=== PATIENT | female | born 1970 | race Caucasian/White ===

== ENCOUNTER 2019-02-17 17:48 | Emergency (ER) | payer OTHER ==
--- OUTSIDE RECORDS SUMMARY | 2019-02-17 17:49 | XMS REPORT ---
:1970 [facility] Address [address] [place] [address] Dr. Steele [address] [place] [id number] Care Team Providers Name Role Phone Unavailable Unavailable Unavailable Problems This patient has no known problems. Allergies, Adverse Reactions, Alerts This patient has no known allergies or adverse reactions. Medications This patient has no known medications. Encounters Start End Encounter Admission Attending Care Care Encounter Date/Time Date/Time Type Type Clinicians Facility Department ID 2019-02-10 2019-02-10 Outpatient [id number] 09:02:00 09:02:00
[2019-02-17 18:50] LABS: Absolute Lymphocytes (CBC) 2.3 K/uL (0.7-4.9); Basophils % 3.2 % (0-1.3); Eosinophils % 2.5 % (0-4.4); Hematocrit 34.8 % (36.0-45.0); Lymphocytes % 18.7 % (15.3-44.8); Monocytes % 4.6 % (3.3-12.3); RBC Red Blood Cell Count 3.88 M/uL (3.86-4.86)
[2019-02-17 19:05] LABS: Albumin 3.4 g/dL (3.4-5.0); Bilirubin Direct 0.1 mg/dL (0-0.2); Bilirubin Total 0.2 mg/dL (0.2-1.0); Potassium 4.3 mmol/L (3.5-5.1); Protein, Total 7.6 g/dL (6.4-8.2)
[2019-02-17] MEDS ORDERED: MORPHINE 4 MG/ML SYR ONE ×2 (19:05→23:02)
[2019-02-17] MEDS ORDERED: ONDANSETRON 4 MG/2 ML VIAL ONE ×2 (19:05→23:39)
[2019-02-17 19:22] LABS: Blood Morphology Comment NOT SEEN (NOT SEEN); Platelet Estimate ADEQ
[2019-02-17 19:33] LABS: Urine Bacteria <20 /HPF (<20); Urine Culture Reflex Order NOT NEEDED; Urine RBC <5 /HPF (NONE SEEN)
[2019-02-17 20:09] LABS: Urine Blood 2+ (NEG); Urine Glucose NEGATIVE (NEG); Urine Protein NEGATIVE (NEG)
--- NOTE | 2019-02-17 20:38 | RAD REPORT ---
EXAM DESCRIPTION: CTAbdomen Pelvis W Contrast - 02/17/2019 8:29 pm CLINICAL HISTORY: Abdominal pain. LLQ pain;Abd pain;GI bleed COMPARISON: <Comparisons> TECHNIQUE: Biphasic CT imaging of the abdomen and pelvis was performed with 100 ml non-ionic IV cont rast. All CT scans are performed using dose optimization technique as appropriate and may include automated exposure control or mA/KV adjustment according to patient size. FINDINGS: The lung bases are clear. The liver, spleen, pancreas, adrenal glands and kidneys are within normal limits. A 6 cm length of sigmoid colon in the left lower quadrant shows significant pericolonic inflammation. Multiple diverticula are present in the region. Extraluminal air bubbles are present seen adjacent t o the sigmoid colon as well as in the fat in the right lower quadrant. Moderately phlegmonous inflamm atory change and fluid is present in the left lower quadrant without drainable abscess seen. The kendal endix is normal. No evidence of significant lymphadenopathy. No suspicious bony findings. IMPRESSION: Moderately severe left lower quadrant acute sigmoid diverticulitis is present. No draina ble abscess seen.
[2019-02-17] MEDS ORDERED: Levofloxacin500mg IV 500 MG/100 ML BAG IV ONE (21:42)
[2019-02-17] MEDS ORDERED: METRONIDAZOLE 500mg IVPB 500 MG/100 ML BAG IV ONE (21:42)
--- NOTE | 2019-02-17 23:24 | ER ---
Nurse's Notes [facility] Name: Heather Fontana Age: 48 yrs Sex: Female : 1970 Arrival Date: 02/17/2019 Time: 17:50 Bed 27 Private MD: Diagnosis: Diverticulitis of large intestine without perforation or abscess without bleeding Presentation: 02/17 17:53 Presenting complaint: Patient states: S/P lap hysterectomy at [facility] a week hj ago. This morning, when i went to [facility], i noticed blood other than my stool, and this afternoon it was all blood; reports abd pain on the L lower abd; reports nausea; denies fever and chills; pt states" called my doctor and they told me to go to the ER and have a CT scan". Transition of care: patient was not received from another setting of care. Onset of symptoms was February 17, 2019. Risk Assessment: Do you want to hurt yourself or someone else? Patient reports no desire to harm self or others. Initial Sepsis Screen: Does the patient meet any 2 criteria? No. Patient's initial sepsis screen is negative. Does the patient have a suspected source of infection? No. Patient's initial sepsis screen is negative. Care prior to arrival: None. 17:53 Method Of Arrival: Ambulatory 17:53 Acuity: KAREL 3 hj HEAD OF PRODUCT: 18:41 lmp unknown mg2 Historical: - Allergies: 17:56 No Known Allergies; hj - PMHx: 17:56 None; - PSHx: 17:56 neck surgery; lap hysterectomy; - Immunization history:: Flu vaccine status is unknown. - Social history:: Smoking status: unknown. - Ebola Screening: : No symptoms or risks identified at this time. Screenin:41 Abuse screen: Denies threats or abuse. Denies injuries from another. Nutritional mg2 screening: No deficits noted. Tuberculosis screening: No symptoms or risk factors identified. Fall Risk None identified. Assessment: 18:39 General: Appears in no apparent distress. comfortable, Behavior is calm, cooperative. mg2 Pain: Complains of pain in abdomen Pain does not radiate. Pain currently is 3 out of 10 on a pain scale. Quality of pain is described as aching, Pain began gradually, Is intermittent. Neuro: Level of Consciousness is awake, alert, obeys commands, Oriented to person, place, time, situation. Neuro: Reports headache. Cardiovascular: Capillary refill < 3 seconds Patient's skin is warm and dry. Respiratory: Airway is patent Respiratory effort is even, unlabored, Respiratory pattern is regular, symmetrical. GI: Abdomen is non-distended, Reports lower abdominal pain, bloody stool, nausea, since today. : No signs and/or symptoms were reported regarding the genitourinary system. EENT: No deficits noted. Derm: Skin is intact, is healthy with good turgor, Skin is pink, warm \\T\\ dry. normal. Musculoskeletal: Circulation, motion, and sensation intact. Capillary refill < 3 seconds. 23:36 Reassessment: Patient appears in no apparent distress at this time. Patient is alert, ca1 oriented x 3, equal unlabored respirations, skin warm/dry/pink. Patient states feeling better. Vital Signs: 17:56 BP 127 / 57; Pulse 83; Resp 18; Temp 98.9; Pulse Ox 96% on R/A; Weight 79.83 kg; Height 5 ft. 6 in. (167.64 cm); Pain 2/10; 21:56 BP 122 / 64; Pulse 67; Resp 18; Pulse Ox 100% on R/A; mg2 23:23 BP 127 / 62; Pulse 62; Resp 18; Pulse Ox 100% on R/A; mg2 17:56 Body Mass Index 28.41 (79.83 kg, 167.64 cm) ED Course: 17:50 Patient arrived in ED. as 17:55 Triage completed. hj 17:56 Arm band placed on right wrist. hj 18:07 David Schaffer RN is Primary Nurse. mg2 18:15 Florencio Odonnell NP is PHCP. pm1 18:15 Saqib Rhodes MD is Attending Physician. pm1 18:34 Inserted saline lock: 22 gauge in right antecubital area, using aseptic technique. jp3 Blood collected. 18:34 Initial lab(s) drawn, by me, sent to lab. T\\T\\S collected, blood band applied to patient. jp3 Patient maintains SpO2 saturation greater than 95% on room air. 18:40 Placed in gown. Bed in low position. Call light in reach. Side rails up X 1. Side rails jp3 up X2. Warm blanket given. Verbal reassurance given. Pulse ox on. NIBP on. 18:40 TS Sent. jp3 18:40 Basic Metabolic Panel Sent. jp3 18:40 CBC with Diff Sent. jp3 18:41 Creatinine for Radiology Sent. jp3 18:41 Hepatic Function Sent. jp3 18:41 Lipase Sent. jp3 19:43 No provider procedures requiring assistance completed. mg2 20:29 CT Abd/Pelvis - PO and IV Contrast In Process Unspecified. EDMS 23:36 IV discontinued, intact, bleeding controlled, No redness/swelling at site. Pressure ca1 dressing applied. Administered Medications: 18:54 Drug: morphine 4 mg Route: IVP; Site: right antecubital; mg2 19:57 Follow up: Response: No adverse reaction; Marked relief of symptoms mg2 18:54 Drug: Zofran 4 mg Route: IVP; Site: right antecubital; mg2 19:57 Follow up: Response: No adverse reaction; Marked relief of symptoms mg2 21:30 Drug: Flagyl 500 mg Volume: 100 ml; Route: IVPB; Rate: 200 ml/hr; Infused Over: 30 mg2 mins; Site: right antecubital; 22:01 Drug: LevaQUIN 500 mg Volume: 100 ml; Route: IVPB; Infused Over: 60 mins; Site: right mg2 antecubital; 22:54 Drug: morphine 4 mg Route: IVP; Site: right antecubital; mg2 Outcome: 23:23 Discharge ordered by MD. pm1 23:36 Discharged to home ambulatory, with significant other. ca1 23:36 Condition: stable 23:36 Discharge instructions given to patient, Instructed on discharge instructions, follow up and referral plans. medication usage, Demonstrated understanding of instructions, follow-up care, medications, Prescriptions given X 3. 23:37 Patient left the ED. ca1 Signatures: Dispatcher [employer] EDMS Reina Garcia Henry, RN RN hj Florencio Odonnell NP WOOD FLOOR LAYER pm1 David Schaffer RN RN mg2 Dalton Qureshi jp3 Claudette Starks RN RN ca1 Corrections: (The following items were deleted from the chart) 17:57 17:53 Presenting complaint: Patient states: S/P lap hysterectomy at [facility] a hj week ago. This morning, when i went to [facility], i noticed blood other than my stool, and this afternoon it was all blood; reports abd pain on the L lower abd; reports nausea; denies fever and chills; 17:57 17:56 Temp 98.9F; 79.83 kg; Height 5 ft. 6 in.; BMI: 28.4; Pain 09/14; [facility]
--- NOTE | 2019-02-17 23:24 | EDPHYS ---
Physician Documentation [facility] Name: Heather Fontana Age: 48 yrs Sex: Female : 1970 Arrival Date: 02/17/2019 Time: 17:50 Bed 27 Private MD: ED Physician Saqib Rhodes HPI: 02/17 19:38 This 48 yrs old Female presents to ER via Ambulatory with complaints of pm1 Bloody Stools, Abdominal pain. 19:38 The patient presents with abdominal pain in the left lower quadrant. Onset: The pm1 symptoms/episode began/occurred today. The symptoms do not radiate. Associated signs and symptoms: Pertinent positives: blood in stools, Pertinent negatives: nausea and vomiting, dysuria, fever. The symptoms are described as achy. Modifying factors: The symptoms are alleviated by nothing, the symptoms are aggravated by nothing. Severity of pain: in the emergency department the pain is actually worse. The patient has experienced similar episodes in the past, and the symptoms today are exactly the same, to previous diverticulitis. The patient has been recently seen by a physician: with different complaint(s), Hysterectomy and left oophorectomy 1 weeks ago. 19:38 Patient with bright red blood in stools and toilet. pm1 PLANT CHANGER: 18:41 lmp unknown mg2 Historical: - Allergies: 17:56 No Known Allergies; hj - PMHx: 17:56 None; hj - PSHx: 17:56 neck surgery; lap hysterectomy; hj - Immunization history:: Flu vaccine status is unknown. - Social history:: Smoking status: unknown. - Ebola Screening: : No symptoms or risks identified at this time. ROS: 19:38 Constitutional: Negative for fever, chills, and weight loss, Eyes: Negative for injury, pm1 pain, redness, and discharge, ENT: Negative for injury, pain, and discharge, Neck: Negative for injury, pain, and swelling, Cardiovascular: Negative for chest pain, palpitations, and edema, Respiratory: Negative for shortness of breath, cough, wheezing, and pleuritic chest pain. 19:38 Back: Negative for injury and pain, : Negative for injury, bleeding, discharge, and swelling, MS/Extremity: Negative for injury and deformity, Skin: Negative for injury, rash, and discoloration, Neuro: Negative for headache, weakness, numbness, tingling, and seizure. 19:38 Abdomen/GI: Positive for abdominal pain, of the left lower quadrant, Negative for nausea, vomiting, and diarrhea. Exam: 19:38 Constitutional: This is a well developed, well nourished patient who is awake, alert, pm1 and in no acute distress. Head/Face: Normocephalic, atraumatic. Eyes: Pupils equal round and reactive to light, extra-ocular motions intact. Lids and lashes normal. Conjunctiva and sclera are non-icteric and not injected. Cornea within normal limits. Periorbital areas with no swelling, redness, or edema. ENT: Nares patent. No nasal discharge, no septal abnormalities noted. Tympanic membranes are normal and external auditory canals are clear. Oropharynx with no redness, swelling, or masses, exudates, or evidence of obstruction, uvula midline. Mucous membranes moist. Neck: Trachea midline, no thyromegaly or masses palpated, and no cervical lymphadenopathy. Supple, full range of motion without nuchal rigidity, or vertebral point tenderness. No Meningismus. Chest/axilla: Normal chest wall appearance and motion. Nontender with no deformity. No lesions are appreciated. Cardiovascular: Regular rate and rhythm with a normal S1 and S2. No gallops, murmurs, or rubs. Normal PMI, no JVD. No pulse deficits. Respiratory: Lungs have equal breath sounds bilaterally, clear to auscultation and percussion. No rales, rhonchi or wheezes noted. No increased work of breathing, no retractions or nasal flaring. Back: No spinal tenderness. No costovertebral tenderness. Full range of motion. 19:38 Skin: Warm, dry with normal turgor. Normal color with no rashes, no lesions, and no evidence of cellulitis. MS/ Extremity: Pulses equal, no cyanosis. Neurovascular intact. Full, normal range of motion. 19:38 Abdomen/GI: Inspection: abdomen appears normal, Bowel sounds: normal, Palpation: soft, mild abdominal tenderness, in the left lower quadrant, mass, is not appreciated, rebound tenderness, is not appreciated. 19:38 Neuro: Orientation: is normal, Motor: is normal, moves all fours. Vital Signs: 17:56 BP 127 / 57; Pulse 83; Resp 18; Temp 98.9; Pulse Ox 96% on R/A; Weight 79.83 kg; Height hj 5 ft. 6 in. (167.64 cm); Pain 2/10; 21:56 BP 122 / 64; Pulse 67; Resp 18; Pulse Ox 100% on R/A; mg2 23:23 BP 127 / 62; Pulse 62; Resp 18; Pulse Ox 100% on R/A; mg2 17:56 Body Mass Index 28.41 (79.83 kg, 167.64 cm) MDM: 18:22 Patient medically screened. pm1 21:35 ED course: Discussed current findings with Dr. Brock, the surgeon who performed pm1 partial hysterectomy. Reports that patient with injury to small bowel that was repaired. 23:05 ED course: discussed with patient the need for hospitalization according to discussion pm1 with my hospitalist Dr. Stearns. He believes that hospitalization [facility] be best at [facility] but if she does not want to go there he would be happy to admit her here. The patient does not want to stay in the hospital and wants to go home. Educated the patient on return precautions. 23:09 Data reviewed: vital signs. Data interpreted: Pulse oximetry: on room air is 100 %. pm1 Interpretation: normal. Counseling: I had a detailed discussion with the patient and/or guardian regarding: the historical points, exam findings, and any diagnostic results supporting the discharge/admit diagnosis, lab results, radiology results, the need for outpatient follow up, to return to the emergency department if symptoms worsen or persist or if there are any questions or concerns that arise at home. 02/17 18:08 Order name: Basic Metabolic Panel; Complete Time: 19:29 mg2 02/17 18:08 Order name: CBC with Diff; Complete Time: 19:29 mg2 02/17 18:08 Order name: Creatinine for Radiology; Complete Time: 19:29 mg2 02/17 18:08 Order name: Hepatic Function; Complete Time: 19:29 mg2 02/17 18:08 Order name: Lipase; Complete Time: 19:29 mg2 02/17 18:08 Order name: TS; Complete Time: 19:29 mg2 02/17 18:37 Order name: CT Abd/Pelvis - PO and IV Contrast; Complete Time: 21:05 pm1 02/17 18:48 Order name: Urine Microscopic Only; Complete Time: 19:49 iw 02/17 18:50 Order name: Urine Dipstick--Ancillary (enter results); Complete Time: 21:05 bd 02/17 18:50 Order name: Urine --Ancillary (enter results); Complete Time: 21:05 02/17 18:58 Order name: Manual Differential; Complete Time: 19:29 EDTX 02/17 19:28 Order name: ABO/RH no charge; Complete Time: 19:29 EDTX 02/17 18:08 Order name: IV Saline Lock; Complete Time: 18:41 mg2 02/17 18:08 Order name: Labs collected and sent; Complete Time: 18:41 mg2 02/17 18:37 Order name: Urine Dipstick-Ancillary (obtain specimen); Complete Time: 18:47 pm1 Administered Medications: 18:54 Drug: morphine 4 mg Route: IVP; Site: right antecubital; mg2 19:57 Follow up: Response: No adverse reaction; Marked relief of symptoms mg2 18:54 Drug: Zofran 4 mg Route: IVP; Site: right antecubital; mg2 19:57 Follow up: Response: No adverse reaction; Marked relief of symptoms mg2 21:30 Drug: Flagyl 500 mg Volume: 100 ml; Route: IVPB; Rate: 200 ml/hr; Infused Over: 30 mg2 mins; Site: right antecubital; 22:01 Drug: LevaQUIN 500 mg Volume: 100 ml; Route: IVPB; Infused Over: 60 mins; Site: right mg2 antecubital; 22:54 Drug: morphine 4 mg Route: IVP; Site: right antecubital; mg2 Disposition: 02/18 05:51 Co-signature as Attending Physician, Saqib Rhodes MD I agree with the assessment and brisa plan of care. Disposition: 02/17/19 23:23 Discharged to Home. Impression: Diverticulitis of large intestine without perforation or abscess without bleeding. - Condition is Stable. - Discharge Instructions: Diverticulitis. - Prescriptions for Flagyl 500 mg Oral Tablet - take 1 tablet by ORAL route every 8 hours for 10 days; 30 tablet. Tylenol- Codeine #3 300-30 mg Oral Tablet - take 2 tablet by ORAL route every 6 hours As needed; 30 tablet. Cipro 500 mg Oral Tablet - take 1 tablet by ORAL route every 12 hours for 10 days; 20 tablet. - Medication Reconciliation Form, Thank You Letter, Antibiotic Education, Prescription Opioid Use form. - Follow up: Emergency Department; When: As needed; Reason: Worsening of condition. Follow up: Private Physician; When: 2 - 3 days; Reason: Recheck today's complaints, Continuance of care, Re-evaluation by your physician. - Problem is new. - Symptoms have improved. Signatures: Dispatcher [employer] EDMS Saqib Rhodes MD MD cha Joaquin, Henry RN RN hj Florencio Odonnell NP CHAPTER RELATIONS ADMINISTRATOR pm1 David Schaffer RN RN mg2 Claudette Starks RN RN ca1 Corrections: (The following items were deleted from the chart) 02/17 23:37 23:23 02/17/2019 23:23 Discharged to Home. Impression: Diverticulitis of large ca1 intestine without perforation or abscess without bleeding. Condition is Stable. Forms are Medication Reconciliation Form, Thank You Letter, Antibiotic Education, Prescription Opioid Use. Follow up: Emergency Department; When: As needed; Reason: Worsening of condition. Follow up: Private Physician; When: 2 - 3 days; Reason: Recheck today's complaints, Continuance of care, Re-evaluation by your physician. Problem is new. Symptoms have improved. pm1
[2019-02-18 00:49] VITALS: TEMP 98.9
[2019-02-18 00:50] VITALS: O2SAT 100
[2019-02-18 00:51] VITALS: BP 127/62
== END 2019-02-17 23:37 | disposition home or self-care (01) ==
LOC: ER 17:48
DX: K57.32 Diverticulitis of large intestine without perforation or abscess without bleeding (principal)
CPT/HCPCS: 36415; 74177; 80048; 80076; 81003; 81015; 81025; 83690; 85025; 86850; 86900; 86901; 96374; 96375; 99284; J2405; Q9967

== ENCOUNTER 2024-06-29 15:46 | Inpatient (IN) | payer OTHER ==
--- OUTSIDE RECORDS SUMMARY | 2024-06-29 15:48 | XMS REPORT | Clinical Summary ---
Author Name Unknown Organization [facility] Address [address] [place] [address] Care Team Providers Care Car Icer Name Role Phone Yelena Sadler MD Unavailable [phone] Jack Brock MD Primary Care Provider [phone] Allergies No known active allergies Medications cholecalciferol, vitamin D3, (VITAMIN D3) 50,000 units tab tablet Take 50,000 Units by mouth every 30 (thirty) days. Active melatonin 3 mg tablet Take 10 mg by mouth at bedtime. Active Active Problems Problem Noted Date Diagnosed Date Abdominal or pelvic swelling , mass, or lump, left lower quadrant 01/27/2019 Personal history of tobacco use 01/27/2019 Overview (05/05/2019): 05/05 Regulatory Import Vitamin D deficiency 01/27/2019 Excessive and frequent menstruation with irregul ar cycle 01/26/2019 Surgical History Surgery Date Site/Laterality Comments ENDOMETRIAL ABLATION 08/05/2004 - 08/04/2005 TUBAL LIGATION 08/05/2004 - 08/04/2005 NECK SURGERY 08/05/2008 - 08/04/2009 Medical History Medical History Date Comments Diverticulitis Endometriosis Family History Medical History Relation Name Comments Lung cancer Maternal Grandfather Lung cancer Maternal Uncle Relation Name Status Comments Maternal Grandfather Maternal Uncle Social History Tobacco Use Types Packs/Day Years Used Date Smoking Tobacco: Former Cigarettes 1 30.6 1 988 - 03/17/2018 Smokeless Tobacco: Never Alcohol Use Standard Drinks/Week Comments Yes 0 (1 standard drink = 0.6 oz pur e alcohol) 3-4 weekly Comments Unknown Sex and Gender Information Value Date Recorded Sex Assigned at Female 01/19/2019 1:24 PM CDT Legal Sex Female 8:42 AM CDT Gender Identity Female 01/19/2019 1:24 PM CDT Sexual Orientation Straight 01/19/2019 1: 24 PM CDT Obstetrics History Para Term AB IAB SAB Ectopic Multiple Livin g Live Births 4 2 Date Outcome GA Total Labor Labor/2nd/3rd Weight Sex Type Anes PTL Eve A1 A5 Name Clin Para Para Comments 2 normal vaginal deliveries Plan of Treatment Health Maintenance Due Date Last Done Comments COVID-19 Vaccine (2023-2 5 season) 2024 Influenza Vaccine (#1) 2024 Pneumococcal Vaccine: Pediat rics (0 to 5 Years) and At-Risk Patients (6 to 64 Years) Aged Out No longer eligi ble based on patient's age to complete this topic [place] [employer] [place] [facility] [place]: [facility] [id number] [place] [id number] Care Teams Car Icer Relationship Specialty Start Date End Date Yelena Sadler MD [address] [place] [address] [email or web address] PCP - External Referring Obstetrics/Gynecology 01/19/19 Jack Brock MD [address] [place] [id number] [email or web address] PCP - General Gynecological Oncology 01/19/19
[2024-06-29] MEDS ORDERED: FAMOTIDINE 20 MG/2 ML VIAL IV ONE (17:10)
[2024-06-29] MEDS ORDERED: MORPHINE 4 MG/ML SYR ONE ×2 (17:10→19:31)
[2024-06-29] MEDS ORDERED: ONDANSETRON 4 MG/2 ML VIAL ONE (17:10)
[2024-06-29] MEDS ORDERED: NA CHLORIDE 0.9% 1,000 ML ONE (17:10)
[2024-06-29] MEDS ORDERED: PIPERACIL/TAZO 3.375 GM VIAL IV ONE (17:11)
[2024-06-29] MEDS ORDERED: NA CHLORIDE 0.9% 100 ML ONE (17:11)
[2024-06-29 17:44] LABS: Absolute Basophils 0.1 K/uL (0-0.5); Absolute Eosinophils 0.1 K/uL (0-0.5); Absolute Neutrophil 10.7 K/uL (1.8-8.0); Basophils % 0.6 % (0-1.3); Eosinophils % 0.9 % (0-4.4); Hematocrit 37.2 % (36.0-45.0); Hemoglobin 12.9 g/dL (12.0-15.0); Lymphocytes % 20.1 % (15.3-44.8); MCH 29.9 pg (27.0-35.0); MCHC 34.6 g/dL (32.0-36.0); MCV 86.4 fL (80-100); MPV 6.5 fL (7.6-11.3); Monocytes % 6.8 % (3.3-12.3); Neutrophils % 71.6 % (41.7-73.7); Nucleated Red Blood Cells % 0.1 % (0-0); Platelets 410 thou/uL (152-406); RBC Red Blood Cell Count 4.31 M/uL (3.86-4.86); Red Cell Distribution Width 12.6 % (12.1-15.2)
[2024-06-29 17:46] LABS: Specific Gravity 1.009 (1.005-1.030); Sqamous Epithelial <5 /HPF (None Seen); Urine Bacteria None Seen /HPF (<20); Urine Bilirubin NEGATIVE (Negative); Urine Blood 2+ (Negative); Urine Clarity Clear (Clear); Urine Color Light-Yellow (Yellow); Urine Culture Reflex Order NOT NEEDED; Urine Glucose NEGATIVE (Negative); Urine Ketones 1+ (Negative); Urine Microscopic Reflex YN ORDER UMIC; Urine Mucus Slight /HPF (None Seen); Urine Nitrite NEGATIVE (Negative); Urine Protein NEGATIVE (Negative); Urine RBC <5 /HPF (None Seen); Urine Urobilinogen Normal (Normal); Urine WBC <5 /HPF (<5); Urine Yeast (Budding) Trace /HPF (None Seen); Urine pH 5.5 (5.0-7.0)
[2024-06-29 18:00] LABS: Albumin 3.5 g/dL (3.4-5.0); Albumin/Globulin Ratio 0.8 (1.1-1.8); Anion Gap 9.5 mEq/L (5.0-15.0); Bilirubin Total 0.5 mg/dL (0.2-1.0); Globulin 4.4 g/dL (2.3-3.5); Potassium 3.5 mEq/L (3.5-5.1); Protein, Total 7.9 g/dL (6.4-8.2)
--- NOTE | 2024-06-29 18:01 | EDPHYS ---
Physician Documentation [facility] Name: Heather Fontana Age: 53 yrs Sex: Female : 1970 Arrival Date: 06/29/2024 Time: 15:46 Bed 7 Private MD: ED Physician Saqib Rhodes HPI: 06/29 16:28 This 53 yrs old Female presents to ER via Ambulatory with complaints of Abdominal Pain, brisa Nausea/Vomiting. 16:28 The patient presents to the emergency department with nausea, that is mild. 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 - Infectious Disease History:: Denies. - Social history:: Smoking status: Patient reports the use of cigarette tobacco products, smokes one pack cigarettes per day. Patient/guardian denies using alcohol. - Family history:: not pertinent. ROS: 16:31 Constitutional: Negative for fever, chills, and weight loss, Eyes: Negative for injury, brisa pain, redness, and discharge, ENT: Negative for injury, pain, and discharge, Neck: Negative for injury, pain, and swelling, Cardiovascular: Negative for chest pain, palpitations, and edema, Respiratory: Negative for shortness of breath, cough, wheezing, and pleuritic chest pain, Back: Negative for injury and pain, : Negative for injury, bleeding, discharge, and swelling, MS/Extremity: Negative for injury and deformity, Skin: Negative for injury, rash, and discoloration, Neuro: Negative for headache, weakness, numbness, tingling, and seizure, Psych: Negative for depression, anxiety, suicide ideation, homicidal ideation, and hallucinations, Allergy/Immunology: Negative for hives, rash, and allergies, Endocrine: Negative for neck swelling, polydipsia, polyuria, polyphagia, and marked weight changes, Hematologic/Lymphatic: Negative for swollen nodes, abnormal bleeding, and unusual bruising, 16:31 Abdomen/GI: Positive for abdominal pain, of the left lower quadrant, Exam: 16:31 Constitutional: This is a well developed, well nourished patient who is awake, alert, brisa and in no acute distress. Head/Face: Normocephalic, atraumatic. Eyes: Pupils equal round and reactive to light, extra-ocular motions intact. Lids and lashes normal. Conjunctiva and sclera are non-icteric and not injected. Cornea within normal limits. Periorbital areas with no swelling, redness, or edema. ENT: Nares patent. No nasal discharge, no septal abnormalities noted. Tympanic membranes are normal and external auditory canals are clear. Oropharynx with no redness, swelling, or masses, exudates, or evidence of obstruction, uvula midline. Mucous membranes moist. Neck: Trachea midline, no thyromegaly or masses palpated, and no cervical lymphadenopathy. Supple, full range of motion without nuchal rigidity, or vertebral point tenderness. No Meningismus. Chest/axilla: Normal chest wall appearance and motion. Nontender with no deformity. No lesions are appreciated. Cardiovascular: Regular rate and rhythm with a normal S1 and S2. No gallops, murmurs, or rubs. Normal PMI, no JVD. No pulse deficits. Respiratory: Lungs have equal breath sounds bilaterally, clear to auscultation and percussion. No rales, rhonchi or wheezes noted. No increased work of breathing, no retractions or nasal flaring. Back: No spinal tenderness. No costovertebral tenderness. Full range of motion. Skin: Warm, dry with normal turgor. Normal color with no rashes, no lesions, and no evidence of cellulitis. MS/ Extremity: Pulses equal, no cyanosis. Neurovascular intact. Full, normal range of motion. Neuro: Awake and alert, GCS 15, oriented to person, place, time, and situation. Cranial nerves II-XII grossly intact. Motor strength 5/5 in all extremities. Sensory grossly intact. Cerebellar exam normal. Normal gait. Psych: Awake, alert, with orientation to person, place and time. Behavior, mood, and affect are within normal limits. 16:31 Abdomen/GI: Inspection: abdomen appears normal, Bowel sounds: normal, Palpation: moderate abdominal tenderness, in the left lower quadrant, Liver: no appreciated palpable abnormalities, Hernia: not appreciated, Vital Signs: 16:14 Pulse 95; Resp 19; Temp 98.5(O); Pulse Ox 98% on R/A; Weight 77.11 kg; Height 5 ft. 6 tm6 in. ; Pain 7/10; 16:14 BP 118 / 73; tm6 19:04 BP 116 / 59; Pulse 69; Resp 18; Pulse Ox 98% on R/A; ph 20:13 BP 132 / 81; Pulse 85; Resp 18; Temp 99.4(O); Pulse Ox 97% on R/A; Height 4 ft. 0 in. ; mt4 16:14 Body Mass Index 27.44 (77.11 kg, 121.92 cm) tm6 16:14 Pain Scale: Adult tm6 MDM: 15:56 Medical Screening Exam initiated brisa 16:32 Differential diagnosis: Nonspecific abd pain, gastritis, pancreatitis, diverticulitis, brisa viral gastroenteritis, gastroenteritis, bowel obstruction, diverticulitis, GI Bleed, sympomatic leaking abdominal aortic aneurysm, Mesenteric ischemia or infarction, non-specific abd pain, pancreatitis, Peritonitis. Data reviewed: vital signs, nurses notes, lab test result(s), radiologic studies, CT scan. Consideration of Admission/Observation Escalation of care including admission/observation considered. I considered the following discharge prescriptions or medication management in the emergency department Medications were administered in the Emergency Department. See MAR. Independent interpretation of the following test(s) in the Emergency Department CT Scan: My interpretation is CT ABD / PELVIS. Test considered but Not performed: Ultrasound NO ABD US. Historians other than the Patient: Spouse/Significant Other: WELL INFORMED. Care significantly affected by the following chronic conditions: Obesity, SMOKER, DIVERTICULITIS. Counseling: I had a detailed discussion with the patient and/or guardian regarding lab results, radiology results, the need for further work-up and treatment in the hospital. 06/29 16:12 Order name: CBC with Diff; Complete Time: 17:58 [facility] 06/29 18:47 Interpretation: Normal except: WBC 15.00; PLT 410; MPV 6.5; NEUT A 10.7. cp 06/29 16:12 Order name: CMP; Complete Time: 18:17 [facility] 06/29 16:12 Order name: Lipase; Complete Time: 18:17 [facility] 06/29 16:12 Order name: Urinalysis w/ reflexes; Complete Time: 17:58 [facility] 06/29 19:36 Order name: CBC with Automated Diff EDMI 06/29 19:36 Order name: Comprehensive Metabolic Panel EDMS 06/29 19:36 Order name: Lactate w/ 2H reflex if indic. [facility] 06/29 19:36 Order name: Liver (Hepatic) Function [facility] 06/29 19:36 Order name: Magnesium [facility] 06/29 19:36 Order name: Phosphorus [facility] 06/29 19:36 Order name: Thyroid Stimulating Hormone [facility] 06/29 19:36 Order name: Urinalysis w/ reflexes [facility] 06/29 19:36 Order name: Lipid Profile [facility] 06/29 19:36 Order name: Lipid Profile [facility] 06/29 16:12 Order name: CT Abd/Pelvis - IV Contrast Only; Complete Time: 18:46 [facility] 06/29 19:36 Order name: CONS Physician Consult [facility] 06/29 16:12 Order name: IV Saline Lock; Complete Time: 17:47 [facility] 06/29 16:12 Order name: Labs collected and sent; Complete Time: 17:47 [facility] Administered Medications: 17:47 Drug: Famotidine IVP 20 mg IVP once; dilute with 10 mL 0.9% NaCl; give over 2 minutes ph Route: IVP; Site: right antecubital; 18:21 Follow up: Response: No adverse reaction ph 17:47 Drug: Ondansetron IVP 4 mg IVP once; over 2 minutes Route: IVP; Site: right antecubital;ph 18:21 Follow up: Response: No adverse reaction ph 17:47 Drug: morphine IVP or IV 4 mg IVP once over 4 mins Route: IVP; Infused Over: 4 mins; ph Site: right antecubital; 18:21 Follow up: Response: No adverse reaction ph 17:47 Drug: NS 0.9% IV 1000 ml IV at 1 bolus Per protocol; to be given as a bolus over 60 ph minutes Route: IV; Rate: 1 bolus; Site: right antecubital; 18:21 Follow up: Response: No adverse reaction; IV Status: Completed infusion; IV Intake: ph 1000ml 19:36 Drug: Piperacillin-Tazobactam IVPB 3.375 grams IVPB once over 60 mins; (mix in NS 100 cp4 mL) Route: IVPB; Infused Over: 60 mins; Site: right antecubital; 20:19 Follow up: Response: No adverse reaction; IV Status: Completed infusion; IV Intake: mt4 100ml 19:36 Drug: morphine IVP or IV 4 mg IVP once over 4 mins Route: IVP; Infused Over: 4 mins; cp4 Site: right antecubital; 20:19 Follow up: Response: No adverse reaction mt4 Disposition Summary: 06/29/24 18:00 Hospitalization Ordered Notes: Hospitalization Status: Inpatient Admission brisa Provider: Colette Stearns cha Location: Telemetry/MedSurg (Inpatient) brisa Condition: Fair brisa Problem: new brisa Symptoms: have improved brisa Bed/Room Type: Standard [facility] Room Assignment: 225(06/29/24 19:38) ty Diagnosis - Abdominal tenderness - DIVERTICULITIS brisa - Elevated white blood cell count brisa Forms: - Medication Reconciliation Form brisa - SBAR form brisa - Leadership Thank You Letter brisa Signatures: Dispatcher [employer] EDMS Saqib Rhodes MD MD cha Hall, Patricia, RN RN Saqib Ochoa PA PA cp Potter, Christina cp4 Charles Martins RN RN 6 Zac Vargas ty Patrick Wynn RN mt4 Corrections: (The following items were deleted from the chart) 16:13 16:12 Abdomen Pelvis W Con+CT.RAD.BRZ ordered. EDMI EDMS 19:38 18:00 brisa ty
--- NOTE | 2024-06-29 18:01 | ER ---
Nurse's Notes [facility] Name: Heather Fontana Age: 53 yrs Sex: Female : 1970 Arrival Date: 06/29/2024 Time: 15:46 Bed 7 Private MD: Diagnosis: Abdominal tenderness-DIVERTICULITIS;Elevated white blood cell count Presentation: 06/29 16:16 Chief complaint: Patient states: last Saturday LLQ to suprapubic area started to hurt. tm6 Feels like dull, nagging, constant pain. Has nausea and vomiting, mostly in the morning. Coronavirus screen: Client denies travel out of the [place] in the last 14 days. Ebola Screen: Patient negative for fever greater than or equal to 101.5 degrees Fahrenheit, and additional compatible Ebola Virus Disease symptoms Patient denies exposure to infectious person. Patient denies travel to an Ebola-affected area in the 21 days before illness onset. No symptoms or risks identified at this time. Initial Sepsis Screen: Does the patient meet any 2 criteria? No. Patient's initial sepsis screen is negative. Does the patient have a suspected source of infection? No. Patient's initial sepsis screen is negative. Risk Assessment: Do you want to hurt yourself or someone else? Patient reports no desire to harm self or others. Onset of symptoms was June 22, 2024. 16:16 Method Of Arrival: Ambulatory tm6 16:16 Acuity: KAREL 3 tm6 Triage Assessment: 16:16 General: Appears in no apparent distress. uncomfortable, Behavior is calm, cooperative. tm6 Pain: Complains of pain in suprapubic area and left lower quadrant Pain currently is 7 out of 10 on a pain scale. Quality of pain is described as dull, Pain began one week ago Is continuous, Also complains of nausea. EENT: No signs and/or symptoms were reported regarding the EENT system. Neuro: Level of Consciousness is awake, alert, obeys commands, Oriented to person, place, time, situation. Cardiovascular: Patient's skin is warm and dry. Respiratory: Airway is patent Respiratory effort is even, unlabored, Respiratory pattern is regular, symmetrical. GI: Abdomen is flat, non-distended, Reports lower abdominal pain, nausea, vomiting, since one week ago. : No signs and/or symptoms were reported regarding the genitourinary system. Derm: No signs and/or symptoms reported regarding the dermatologic system. Musculoskeletal: No signs and/or symptoms reported regarding the musculoskeletal system. 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 - Infectious Disease History:: Denies. - Social history:: Smoking status: Patient reports the use of cigarette tobacco products, smokes one pack cigarettes per day. Patient/guardian denies using alcohol. - Family history:: not pertinent. Screenin:[facility] ED Fall Risk Assessment (Adult) History of falling in the last 3 months, ph including since admission No falls in past 3 months (0 pts) Confusion or Disorientation No (0 pts) Intoxicated or Sedated No (0 pts) Impaired Gait No (0 pts) Mobility Assist Device Used No (0 pt) Altered Elimination No (0 pt) Score/Fall Risk Level 0 - 2 = Low Risk Oriented to surroundings, Maintained a safe environment, Hourly rounding (assess needs \T\ fall precautionary measures) done. Abuse screen: Denies threats or abuse. Denies injuries from another. Nutritional screening: No deficits noted. Tuberculosis screening: No symptoms or risk factors identified. 20:15 Exposure risk/Travel Screening: None identified. mt4 Assessment: 18:19 General: Appears in no apparent distress. comfortable, Behavior is calm, cooperative, ph appropriate for age. Pain: Complains of pain in suprapubic area and left lower quadrant. Neuro: Level of Consciousness is awake, alert, obeys commands, Oriented to person, place, time, situation. Cardiovascular: Capillary refill < 3 seconds in bilateral fingers Patient's skin is warm and dry. Respiratory: Airway is patent Respiratory effort is even, unlabored, Respiratory pattern is regular, symmetrical. GI: Bowel sounds present X 4 quads. Abd is soft X 4 quads Reports lower abdominal pain, nausea, Patient currently denies diarrhea. Derm: Skin is pink, warm \T\ dry. Musculoskeletal: Range of motion: intact in all extremities. 19:04 Reassessment: Patient appears in no apparent distress at this time. Patient and/or ph family updated on plan of care and expected duration. Pain level reassessed. Patient is alert, oriented x 3, equal unlabored respirations, skin warm/dry/pink. 20:15 General: Appears in no apparent distress. comfortable, Behavior is calm, cooperative, mt4 appropriate for age. Pain: Complains of pain in abdomen Pain currently is 4 out of 10 on a pain scale. Is intermittent. Neuro: Level of Consciousness is awake, alert, obeys commands, Oriented to person, place, time, situation, Appropriate for age Pneumatic Tester are equal bilaterally Moves all extremities. Gait is steady, Speech is slurred, Facial symmetry appears normal. Respiratory: Airway is patent Respiratory effort is even, unlabored, Respiratory pattern is regular, symmetrical. GI: Abdomen is non-distended, Bowel sounds present X 4 quads. Abd is soft Abdomen is tender to palpation Reports lower abdominal pain. : Denies burning with urination. Vital Signs: 16:14 Pulse 95; Resp 19; Temp 98.5(O); Pulse Ox 98% on R/A; Weight 77.11 kg; Height 5 ft. 6 tm6 in. ; Pain 7/10; 16:14 BP 118 / 73; tm6 19:04 BP 116 / 59; Pulse 69; Resp 18; Pulse Ox 98% on R/A; ph 20:13 BP 132 / 81; Pulse 85; Resp 18; Temp 99.4(O); Pulse Ox 97% on R/A; Height 4 ft. 0 in. ; mt4 16:14 Body Mass Index 27.44 (77.11 kg, 121.92 cm) tm6 16:14 Pain Scale: Adult tm6 ED Course: 15:49 Patient arrived in ED. im 15:56 Saqib Rhodes MD is Attending Physician. brisa 16:16 Arm band placed on right wrist. tm6 16:18 Triage completed. tm6 16:56 Radiology exam delayed due to IV insertion attempt and/or patient not having ag6 appropriate IV at this time. 16:56 Radiology exam delayed due to lab results not completed at this time. (BUN/Creatinine). ag6 17:45 Initial lab(s) drawn, by mn, sent to lab. Urine collected: clean catch specimen. ph Inserted saline lock: 20 gauge in right antecubital area, using aseptic technique. Blood collected. Flushed with 10 mL NS. 17:47 Shira Horn, RN is Primary Nurse. ph 17:58 Colette Stearns MD is Hospitalizing Provider. brisa 18:20 Patient has correct armband on for positive identification. Bed in low position. Call ph light in reach. Side rails up X 1. Pulse ox on. NIBP on. Door closed. Noise minimized. Lights dimmed. Warm blanket given. Pillow given. 18:26 CT Abd/Pelvis - IV Contrast Only In Process Unspecified. EDMS 19:05 No provider procedures requiring assistance completed. Patient admitted, IV remains in ph place. 20:15 Provided Education on: FALLS AND ADMIT EDUCATION . Client placed on continuous cardiac mt4 and pulse oximetry monitoring. NIBP monitoring applied. secured entrance monitor on. Pulse ox on. NIBP on. Door closed. Lights dimmed. Warm blanket given. Pillow given. Verbal reassurance given. Assisted to bathroom. 20:15 Patient maintains SpO2 saturation greater than 95% on room air. mt4 Administered Medications: 17:47 Drug: Famotidine IVP 20 mg IVP once; dilute with 10 mL 0.9% NaCl; give over 2 minutes ph Route: IVP; Site: right antecubital; 18:21 Follow up: Response: No adverse reaction ph 17:47 Drug: Ondansetron IVP 4 mg IVP once; over 2 minutes Route: IVP; Site: right antecubital;ph 18:21 Follow up: Response: No adverse reaction ph 17:47 Drug: morphine IVP or IV 4 mg IVP once over 4 mins Route: IVP; Infused Over: 4 mins; ph Site: right antecubital; 18:21 Follow up: Response: No adverse reaction ph 17:47 Drug: NS 0.9% IV 1000 ml IV at 1 bolus Per protocol; to be given as a bolus over 60 ph minutes Route: IV; Rate: 1 bolus; Site: right antecubital; 18:21 Follow up: Response: No adverse reaction; IV Status: Completed infusion; IV Intake: ph 1000ml 19:36 Drug: Piperacillin-Tazobactam IVPB 3.375 grams IVPB once over 60 mins; (mix in NS 100 cp4 mL) Route: IVPB; Infused Over: 60 mins; Site: right antecubital; 20:19 Follow up: Response: No adverse reaction; IV Status: Completed infusion; IV Intake: mt4 100ml 19:36 Drug: morphine IVP or IV 4 mg IVP once over 4 mins Route: IVP; Infused Over: 4 mins; cp4 Site: right antecubital; 20:19 Follow up: Response: No adverse reaction mt4 Medication: 18:20 VIS not applicable for this client. ph Intake: 18:21 IV: 1000ml; Total: 1000ml. ph 20:19 IV: 100ml; Total: 1100ml. mt4 Outcome: 18:00 Decision to Hospitalize by Provider. [facility] 20:26 Patient left the ED. mt4 Signatures: Dispatcher [employer] EDMS Saqib Rhodes MD MD cha Hall, Patricia, RN RN Lisa Cote Kassy Tellez Christina cp4 Charles Martins RN RN 6 Patrick Wynn RN RN mt4
--- NOTE | 2024-06-29 18:42 | RAD REPORT ---
EXAMINATION: CT Abdomen Pelvis W Contrast CLINICAL INDICATION: Female, 53 years old. ABD PAIN TECHNIQUE: CT abdomen and pelvis was performed, after the administration of IV contrast[facility] Axial, sagittal and coronal reconstructions were obtained. One or more of the following dose reduction techniques were used: Automated exposure control, adjustment of the mA and k V according to patient size, and iterative reconstruction. Unless otherwise specified, incidental findings do not require dedicated imaging follow-up. COMPARISON: 02/17/2019. FINDINGS: LOWER CHEST: The visualized lung bases are clear. LIVER: Normal in size and contour. No focal lesion. BILIARY SYSTEM: No suspicious abnormalities. SPLEEN: Normal size. No focal lesion. PANCREAS: No mass, ductal dilation, or milady-pancreatic fluid. ADRENALS: Normal; no mass. KIDNEYS: Normal size and contour. No hydronephrosis. URINARY BLADDER: Unremarkable. GASTROINTESTINAL TRACT: Segmental proximal sigmoid colon wall thickening. Distal colonic diverticulos is. Inflammatory changes extending caudally from the inflamed segment, with a lobulated fluid collection extending towards the pelvic sidewall, measuring 3.3 x 2.0 x 2.5 cm. No evidence of free a ir, significant intra-abdominal free fluid, or evidence of bowel obstruction. APPENDIX: Normal appendix. LYMPH NODES: No lymphadenopathy. MUSCULOSKELETAL: No acute or suspicious osseous abnormality. ADDITIONAL FINDINGS: None. IMPRESSION: Proximal sigmoid diverticulosis. A pericolic lobulated collection which may suggest an abscess, exten ding caudally towards the left pelvic sidewall, measuring up to 3.3 cm in greatest dimension. THIS REPORT CONTAINS FINDINGS THAT MAY BE CRITICAL TO PATIENT CARE. The findings were verbally commun icated via telephone to Saqib Ochoa PA-C on 06/29/2024 6:38 PM.
--- NOTE | 2024-06-29 19:42 | P.HP ---
Certification for Inpatient With expected LOS: <2 Midnights <Ingris Proctor Q - Last Filed: 06/29/24 19:36> Patient History Date of Service: 06/29/24 Reason for admission: diverticulosis, abdominal abscess History of Present Illness: 53-year-old woman with a past medical history significant for diverticulitis, and HDL presented to the emergency room complaining of abdominal pain off and on for a week. The patient states that she has a history of diverticulitis, and her last exacerbation was in 2019. The patient states that she has left lower quadrant abdominal pain, associated with nausea, but no fever. She denies vomiting any blood, dark stools, and bloody stools. Her last bowel movement was today. Patient is a current smoker, and smokes 7 packs a week. She denies fever, and urinary symptoms. - Past Medical/Surgical History Diabetic: No -: Diverticulitus -: Hyperlipidemia -: Neck Surgery-removed vertebrae and place cadaver vertebrae -: Tubal ligations - Social History Smoking Status: Current every day smoker (7 packs/week) Alcohol use: No CD- Drugs: No Caffeine use: Yes <Ingris Proctor Q - Last Filed: 06/29/24 19:36> Date of Service: 06/29/24 <Colette Stearns - Last Filed: 07/19/24 16:02> Allergies No Known Allergies Allergy (Verified 11/07/16 12:51) Home Medications: Atorvastatin Calcium [Lipitor*] 10 mg PO DAILY 03/21/14 levoFLOXacin [Levaquin] 500 mg PO DAILY #14 tab 07/02/24 metroNIDAZOLE [Flagyl] 500 mg PO Q8H #42 tab 07/02/24 Review of Systems Gastrointestinal: Nausea, Vomiting, Abdominal Pain, No Distention <Ingris Proctor Q - Last Filed: 06/29/24 19:36> Physical Examination - Vital Signs Temperature: 98.5 F Blood Pressure: 116/59 Pulse: 69 Respirations: 18 Pulse Ox (%): 95 (room air) - Physical Exam General: Alert, Oriented x3 HEENT: Atraumatic, Normocephalic Neck: JVD not distended Respiratory: Clear to auscultation bilaterally Cardiovascular: Regular rate/rhythm, No gallops, No rubs, No murmurs Gastrointestinal: Normal bowel sounds, Non-distended, Tenderness (Left lower abd quadrant) Musculoskeletal: No swelling, No contractures, No erythema, No tenderness, No warmth Neurological: Normal strength at 5/5 x4 extr, Sensation intact - Studies Laboratory Data (last 24 hrs) 06/29/24 06/29/24 17:30 17:30 WBC 15.00 H Hgb 12.9 Hct 37.2 Plt Count 410 H Sodium 135 L Potassium 3.5 BUN 13 Creatinine 0.73 Glucose 87 Total Bilirubin 0.5 AST 13 L ALT 28 Alkaline Phosphatase 99 Lipase 20 <Ingris Proctor Q - Last Filed: 06/29/24 19:36> Assessment and Plan - Problems (Diagnosis) (1) Diverticulosis Status: Acute (2) Abscess Status: Acute (3) Dyslipidemia (high LDL; low HDL) Status: Acute - Plan Diverticulitis: Admit to floor General Surgery consulted NPO diet IVF ordered IV Zosyn ordered IV Zofran ordered IV morphine ordered Abdominal abscess: CT A/P revealed proximal sigmoid diverticulosis, and suggested abscess of 3.3 cm General Surgery consulted NPO diet HDL: Resumed home medication - Advance Directives Does patient have a Living Will: No Does patient have a Durable POA for Healthcare: No <Ingris Proctor Q - Last Filed: 06/29/24 19:36> Date of Service: 06/29/24 Patient was seen and examined. Events of the last 24 hours have been noted. Spoke with with EDGAR regarding patient's clinical picture after evaluating and examining the patient independently. I performed a substantial part of the MDM during this patient's care today. I personally made or approved the documented management plan and acknowledge its risk of complications. I agree with the findings and documentation provided in the EDGAR's notes. <Colette Stearns - Last Filed: 07/19/24 16:02>
[2024-06-29 20:38] VITALS: BMI 26.8
[2024-06-29] MEDS: NA CHLORIDE 0.9% 1,000 ML IV SCH (20:40)
[2024-06-30] MEDS: PIPER TAZO 3.375 GM in NA CHLORIDE 0.9% 100 ML IV SCH (00:14)
[2024-06-30] MEDS: MORPHINE 2 MG/ML SYR IV PRN (00:18)
[2024-06-30] MEDS ORDERED: PIPER TAZO 2.25 GM in NA CHLORIDE 0.9% 50 ML IV SCH (01:00)
[2024-06-30 06:29] LABS: Absolute Eosinophils 0.2 K/uL (0-0.5)
[2024-06-30 06:55] LABS: Anion Gap 9.6 mEq/L (5.0-15.0); Bilirubin Total 0.4 mg/dL (0.2-1.0); Magnesium 2.1 mg/dL (1.6-2.4); Potassium 3.6 mEq/L (3.5-5.1)
[2024-06-30 06:56] LABS: Bilirubin Indirect, Calculated 0.2 mg/dL (0.2-0.8)
[2024-06-30] MEDS: ATORVASTATIN 10 MG TAB PO SCH (08:19)
[2024-06-30 09:30] LABS: RBC Red Blood Cell Count 3.99 M/uL (3.86-4.86)
[2024-06-30 09:31] LABS: Hematocrit 34.9 % (36.0-45.0); Hemoglobin 11.6 g/dL (12.0-15.0); MCHC 33.2 g/dL (32.0-36.0); MCV 87.4 fL (80-100); Platelets 382 thou/uL (152-406); Red Cell Distribution Width 12.7 % (12.1-15.2)
[2024-06-30 09:32] LABS: Absolute Basophils 0.1 K/uL (0-0.5); Absolute Lymphocytes (CBC) 2.3 K/uL (0.7-4.9); Absolute Monocytes 1.2 K/uL (0.1-1.3); Absolute Neutrophil 11.7 K/uL (1.8-8.0); Basophils % 0.7 % (0-1.3); Eosinophils % 1.2 % (0-4.4); Lymphocytes % 14.8 % (15.3-44.8); MPV 6.6 fL (7.6-11.3); Monocytes % 7.6 % (3.3-12.3); Neutrophils % 75.7 % (41.7-73.7)
[2024-06-30 09:58] LABS: Bilirubin Direct 0.2 mg/dL (0-0.2)
[2024-06-30 09:59] LABS: Phosphorus 2.9 mg/dL (2.5-4.9); Protein, Total 7.1 g/dL (6.4-8.2)
[2024-06-30 10:03] LABS: Thyroid Stimulating Hormone 0.794 uIU/mL (0.358-3.740)
[2024-06-30 10:06] LABS: Albumin/Globulin Ratio 0.7 (1.1-1.8)
[2024-06-30 10:07] LABS: Globulin 4.1 g/dL (2.3-3.5)
[2024-06-30] MEDS: ENOXAPARIN 40 MG/0.4 ML SQ SCH (11:12)
[2024-06-30] MEDS: KCL 20 MEQ/100 mL IVPB 20 MEQ/100 ML BAG IV SCH (11:12)
--- NOTE | 2024-06-30 18:38 | P.PN ---
Date of Service: 06/30/24 subjective Nausea improved, left lower quadrant abdominal pain, plan to advance to clear liquid diet today Review of Systems 10 point review of system negative unless listed in HPI Physical Examination - Vital Signs Reviewed - Physical Exam General: Alert, Oriented x3, afebrile HEENT: Atraumatic, Normocephalic Neck: JVD not distended Respiratory: Clear to auscultation bilaterally Cardiovascular: Regular rate/rhythm, No gallops, No rubs, No murmurs Gastrointestinal: Normal bowel sounds, Non-distended, Tenderness (Left lower abd quadrant) Musculoskeletal: No swelling, No contractures, No erythema, No tenderness, No warmth Neurological: Normal strength at 5/5 x4 extr, Sensation intact Assessment and Plan - Problems (Diagnosis) (1) Diverticulosis Current Visit: Yes Status: Acute (2) Abscess Current Visit: Yes Status: Acute (3) Dyslipidemia (high LDL; low HDL) Current Visit: Yes Status: Acute (4) hypokalemia Current Visit: Yes Status: Acute Trend electrolytes replace as needed - Plan Diverticulitis: Admit to floor General Surgery consulted NPO diet, advance to clear liquid diet IVF ordered IV Zosyn ordered IV Zofran ordered IV morphine ordered Abdominal abscess: CT A/P revealed proximal sigmoid diverticulosis, and suggested abscess of 3.3 cm General Surgery consulted NPO diet HDL: Resumed home medication - Advance Directives Does patient have a Living Will: No Does patient have a Durable POA for Healthcare: No Time with patient 25 <Frida Berg - Last Filed: 06/30/24 18:38> Patient was seen and examined. Events of the last 24 hours have been noted. Spoke with with EDGAR regarding patient's clinical picture after evaluating and examining the patient independently. I performed a substantial part of the MDM during this patient's care today. I personally made or approved the documented management plan and acknowledge its risk of complications. I agree with the findings and documentation provided in the EDGAR's notes. <Colette Stearns - Last Filed: 07/19/24 16:02>
[2024-06-30] MEDS: ONDANSETRON 4 MG/2 ML VIAL IV PRN (22:45)
[2024-06-30 23:14] VITALS: O2SAT 98
[2024-07-01 04:51] LABS: Absolute Basophils 0.1 K/uL (0-0.5); Absolute Eosinophils 0.2 K/uL (0-0.5); Absolute Lymphocytes (CBC) 2.6 K/uL (0.7-4.9); Absolute Monocytes 1.1 K/uL (0.1-1.3); Absolute Neutrophil 10.4 K/uL (1.8-8.0); Basophils % 0.6 % (0-1.3); Eosinophils % 1.4 % (0-4.4); Hematocrit 35.2 % (36.0-45.0); Hemoglobin 11.9 g/dL (12.0-15.0); Lymphocytes % 18.2 % (15.3-44.8); MCH 29.7 pg (27.0-35.0); MCV 87.5 fL (80-100); MPV 6.8 fL (7.6-11.3); Monocytes % 7.8 % (3.3-12.3); Platelets 397 thou/uL (152-406); RBC Red Blood Cell Count 4.02 M/uL (3.86-4.86); Red Cell Distribution Width 12.7 % (12.1-15.2)
[2024-07-01 04:58] LABS: Anion Gap 7.4 mEq/L (5.0-15.0); Potassium 3.4 mEq/L (3.5-5.1)
[2024-07-01] MEDS ORDERED: KCL 20 MEQ/100 mL IVPB 20 MEQ/100 ML BAG IV SCH (07:00)
[2024-07-01] MEDS: POTASSIUM 25 MEQ EFFERV TAB PO ONE (09:42)
[2024-07-02 05:26] LABS: Absolute Basophils 0.1 K/uL (0-0.5); Absolute Eosinophils 0.2 K/uL (0-0.5); Absolute Lymphocytes (CBC) 2.4 K/uL (0.7-4.9); Absolute Monocytes 1.1 K/uL (0.1-1.3); Absolute Neutrophil 9.8 K/uL (1.8-8.0); Basophils % 0.7 % (0-1.3); Eosinophils % 1.4 % (0-4.4); Hematocrit 34.2 % (36.0-45.0); Hemoglobin 11.7 g/dL (12.0-15.0); Lymphocytes % 17.4 % (15.3-44.8); MCH 29.6 pg (27.0-35.0); MCHC 34.2 g/dL (32.0-36.0); MCV 86.6 fL (80-100); MPV 6.6 fL (7.6-11.3); Monocytes % 7.9 % (3.3-12.3); Neutrophils % 72.6 % (41.7-73.7); Platelets 378 thou/uL (152-406); RBC Red Blood Cell Count 3.95 M/uL (3.86-4.86); Red Cell Distribution Width 12.8 % (12.1-15.2)
[2024-07-02 05:39] LABS: Anion Gap 9.6 mEq/L (5.0-15.0); Potassium 3.6 mEq/L (3.5-5.1)
[2024-07-02] MEDS: POTASSIUM CL SA 10 MEQ TAB PO ONE (05:56)
--- NOTE | 2024-07-02 09:30 | P.PN ---
Date of Service: 07/01/24 subjective plan to advance diet today, leukocytosis improved on IV Zosyn Review of Systems 10 point review of system negative unless listed in HPI Physical Examination - Vital Signs Reviewed - Physical Exam General: Alert, Oriented x3, no acute distress no HEENT: Atraumatic, Normocephalic Neck: JVD not distended Respiratory: Clear to auscultation bilaterally Cardiovascular: Regular rate/rhythm, No gallops, No rubs, No murmurs Gastrointestinal: Normal bowel sounds, Tenderness (Left lower abd quadrant) Musculoskeletal: No swelling, No contractures, No erythema, No tenderness, No warmth Neurological: Normal strength at 5/5 x4 extr, Sensation intact Assessment and Plan - Problems (Diagnosis) (1) Diverticulosis Current Visit: Yes Status: Acute (2) Abscess Current Visit: Yes Status: Acute (3) Dyslipidemia (high LDL; low HDL) Current Visit: Yes Status: Acute (4) hypokalemia Current Visit: Yes Status: Acute Trend electrolytes replace as needed - Plan Diverticulitis: Admit to floor General Surgery consulted NPO diet, advance diet to soft IVF ordered, Zosyn, as needed analgesia Abdominal abscess: CT A/P revealed proximal sigmoid diverticulosis, and suggested abscess of 3.3 cm General Surgery consulted NPO diet HDL: Resumed home medication - Advance Directives Does patient have a Living Will: No Does patient have a Durable POA for Healthcare: No Time with patient 25
--- NOTE | 2024-07-02 10:47 | P.DS ---
Admission Date: 06/29/24 Discharge Date: 07/02/24 Reason for Admission: diverticulosis, abdominal abscess Brief History of Present Illness: 53-year-old woman with a past medical history significant for diverticulitis, and HDL presented to the emergency room complaining of abdominal pain off and on for a week. The patient states that she has a history of diverticulitis, and her last exacerbation was in 2019. The patient states that she has left lower quadrant abdominal pain, associated with nausea, but no fever. She denies vomiting any blood, dark stools, and bloody stools. Her last bowel movement was today. Patient is a current smoker, and smokes 7 packs a week. . - Physical Exam General: Alert, Oriented x3 HEENT: Atraumatic, Normocephalic Neck: JVD not distended Respiratory: Clear to auscultation bilaterally Cardiovascular: Regular rate/rhythm, No gallops, No rubs, No murmurs Gastrointestinal: Normal bowel sounds, Non-distended, Tenderness (Left lower abd quadrant) Musculoskeletal: No swelling, No contractures, No erythema, No tenderness, No warmth Neurological: Normal strength at 5/5 x4 extr, Sensation intact Hospital Course: 53-year-old woman with a past medical history significant for diverticulitis, and HDL presented to the emergency room complaining of abdominal pain off and on for a week. The patient states that she has a history of diverticulitis, and her last exacerbation was in 2019. The patient states that she has left lower quadrant abdominal pain, associated with nausea, but no fever. She denies vomiting any blood, dark stools, and bloody stools. Her last bowel movement was today. She was evaluated by surgery, treated with IV pain medicines, IV antibiotics. Diet diet was slowly advanced, patient is tolerating diet, pain is controlled, stable to discharge home, follow-up with surgery after discharge Discharge medications Levaquin, Flagyl take as directed until gone Assessment Abdominal pain secondary to diverticulosis-stable to discharge home per Dr. Ramirez-Will need to follow-up outpatient for colonoscopy with surgery Abdominal abscess, treated with IV antibiotics, conservative treatment discharged home on antibiotics Dyslipidemia resume home medications after discharge Hypokalemia electrolytes were replaced prior to discharge 06/29 CT of the abdomen pelvis IMPRESSION: Proximal sigmoid diverticulosis. A pericolic lobulated collection which may suggest an abscess, extending caudally towards the left pelvic sidewall, measuring up to 3.3 cm in greatest dimension. Continue home medicines as previously prescribed GOAL: Clear understanding of disease process INSTRUCTIONS: Physician Discharge Instructions: -Follow-up with surgery after discharge -Follow-up with PCP in 1 to 2 weeks -Please call Dr. Stearns at [phone] if any questions regarding hospital stay -Please call nursing station at [phone] if any nursing or medication questions -Return to the emergency room if symptoms worsen Diet: ADA, low sodium Activity: Fall precautions <Frida Berg - Last Filed: 07/02/24 17:59> Admission Date: 06/29/24 Discharge Date: 07/02/24 Hospital Course: Patient was seen and examined. Events of the last 24 hours have been noted. Spoke with with EDGAR regarding patient's clinical picture after evaluating and examining the patient independently. I performed a substantial part of the MDM during this patient's care today. I personally made or approved the documented management plan and acknowledge its risk of complications. I agree with the findings and documentation provided in the EDGAR's notes. <Colette Stearns - Last Filed: 07/19/24 16:03> Disposition: ROUTINE DISCHARGE Discharge Condition: GOOD Vital Signs/Physical Exam: Temp Pulse Resp BP Pulse Ox 97.5 F 83 16 145/75 H 98 07/02/24 08:00 07/02/24 08:00 07/02/24 08:00 07/02/24 08:00 07/02/24 08:00 Laboratory Data at Discharge: WBC 13.50 thou/uL (4.3-10.9) H 07/02/24 05:14 Hgb 11.7 g/dL (12.0-15.0) L 07/02/24 05:14 Hct 34.2 % (36.0-45.0) L 07/02/24 05:14 Plt Count 378 thou/uL (152-406) 07/02/24 05:14 Sodium 138 mEq/L (136-145) 07/02/24 05:14 Potassium 3.6 mEq/L (3.5-5.1) 07/02/24 05:14 BUN 6 mg/dL (7-18) L 07/02/24 05:14 Creatinine 0.57 mg/dL (0.55-1.02) 07/02/24 05:14 Glucose 93 mg/dL (74-106) 07/02/24 05:14 Phosphorus 2.9 mg/dL (2.5-4.9) 06/30/24 08:57 Magnesium 2.1 mg/dL (1.6-2.4) 06/30/24 08:57 Total Bilirubin 0.4 mg/dL (0.2-1.0) 06/30/24 08:57 AST 9 U/L (15-37) L 06/30/24 08:57 ALT 22 U/L (13-56) 06/30/24 08:57 Alkaline Phosphatase 86 U/L (45-117) 06/30/24 08:57 Triglycerides 155 mg/dL (<150) H 06/30/24 08:57 Cholesterol 195 mg/dL (<200) 06/30/24 08:57 HDL Cholesterol 26 mg/dL (40-60) L 06/30/24 08:57 Cholesterol/HDL Ratio 7.50 06/30/24 08:57 Lipase 20 U/L (13-75) 06/29/24 17:30 <Frida Berg - Last Filed: 07/02/24 17:59> Vital Signs/Physical Exam: Temp Pulse Resp BP Pulse Ox 97.2 F 88 16 142/77 H 98 07/02/24 16:00 07/02/24 16:00 07/02/24 16:00 07/02/24 16:00 07/02/24 16:00 Laboratory Data at Discharge: WBC 13.50 thou/uL (4.3-10.9) H 07/02/24 05:14 Hgb 11.7 g/dL (12.0-15.0) L 07/02/24 05:14 Hct 34.2 % (36.0-45.0) L 07/02/24 05:14 Plt Count 378 thou/uL (152-406) 07/02/24 05:14 Sodium 138 mEq/L (136-145) 07/02/24 05:14 Potassium Cancelled 07/02/24 Unknown BUN 6 mg/dL (7-18) L 07/02/24 05:14 Creatinine 0.57 mg/dL (0.55-1.02) 07/02/24 05:14 Glucose 93 mg/dL (74-106) 07/02/24 05:14 Phosphorus 2.9 mg/dL (2.5-4.9) 06/30/24 08:57 Magnesium 2.1 mg/dL (1.6-2.4) 06/30/24 08:57 Total Bilirubin 0.4 mg/dL (0.2-1.0) 06/30/24 08:57 AST 9 U/L (15-37) L 06/30/24 08:57 ALT 22 U/L (13-56) 06/30/24 08:57 Alkaline Phosphatase 86 U/L (45-117) 06/30/24 08:57 Triglycerides 155 mg/dL (<150) H 06/30/24 08:57 Cholesterol 195 mg/dL (<200) 06/30/24 08:57 HDL Cholesterol 26 mg/dL (40-60) L 06/30/24 08:57 Cholesterol/HDL Ratio 7.50 06/30/24 08:57 Lipase 20 U/L (13-75) 06/29/24 17:30 <Colette Stearns - Last Filed: 07/19/24 16:03> Time spent managing pt's care (in minutes): 45 <Frida Berg - Last Filed: 07/02/24 17:59> <Colette Stearns - Last Filed: 07/19/24 16:03> Home Medications: Atorvastatin Calcium [Lipitor*] 10 mg PO DAILY 03/21/14 levoFLOXacin [Levaquin] 500 mg PO DAILY #14 tab 07/02/24 metroNIDAZOLE [Flagyl] 500 mg PO Q8H #42 tab 07/02/24 New Medications: metroNIDAZOLE [Flagyl] 500 mg PO Q8H #42 tab levoFLOXacin [Levaquin] 500 mg PO DAILY #14 tab Physician Discharge Instructions: PROBLEM: Diverticulosis, abdominal abscess GOAL: Clear understanding of disease process INSTRUCTIONS: -DC IV and DC home -Follow-up with PCP in 1 to 2 weeks - see list -Follow-up with Surgery, Dr. Ramirez, in 1 to 2 weeks -Please call Dr. Stearns at [phone] if any questions regarding hospital stay -Please call nursing station at [phone] if any nursing or medication questions -Return to the emergency room if symptoms worsen Diet: Soft Activity: Fall precautions Follow up with a Family Medicine Physician of your choice: INO STORY MD [address] [facility], [address] [place] [address] ACCEPTING NEW PATIENTS! DONNELL JARAMILLO MD [address] [facility], [address] [place] [address] ACCEPTING NEW PATIENTS! SHYAMSherryJUNIOR UMANA, DO [address] [address] CLARA LITTLE MD [address] [facility], [address] [place] [address] RICHARD ABRAHAM MD [address] [facility], [address] [place] [address] EMMA EMERY MD [address] [facility], [place] [address] [place] [address] BINA TRIPP MD [address] [place] [address] IMELDA MENDEZ, [facility] [address] [facility] [facility], [address] [place] [address] KALEIGH MARTINEZ MD [address] [facility], [address] [place] [address] BERNARDO MARTINEZ APRN [facility] [address] [facility], [address] [place] [address] COUNTS INCLUDE 234 BEDS AT THE [facility] KAYLEN DO [address] [facility], [address] [place] [address] Followup: Jose R Ramirez MD [ACTIVE - CAN ADMIT] - NONE,NONE [Primary Care Provider] -
[2024-07-02] MEDS: CODEINE 30MG/APAP 300MG TAB PO PRN (11:34)
[2024-07-02 17:09] VITALS: BP 142/77; TEMP 97.2
--- NOTE | 2024-07-02 18:08 | P.PN ---
Date of Service: 07/01/24 subjective Diet advanced, tolerating diet, afebrile, pain control, Review of Systems 10 point review of system negative unless listed in HPI Physical Examination - Vital Signs Reviewed - Physical Exam General: Alert, Oriented x3, afebrile no acute distress noted HEENT: Atraumatic, Normocephalic Neck: JVD not distended Respiratory: Clear to auscultation bilaterally, equal unlabored Cardiovascular: Regular rate/rhythm, No gallops, No rubs, No murmurs Gastrointestinal: Normal bowel sounds, Non-distended, Tenderness (Left lower abd quadrant) Musculoskeletal: No swelling, No contractures, No erythema, No tenderness, No warmth Neurological: Normal strength at 5/5 x4 extr, Sensation intact, no focal deficits Assessment and Plan - Problems (Diagnosis) (1) Diverticulosis Current Visit: Yes Status: Acute (2) Abscess Current Visit: Yes Status: Acute (3) Dyslipidemia (high LDL; low HDL) Current Visit: Yes Status: Acute (4) hypokalemia Current Visit: Yes Status: Acute Trend electrolytes replace as needed - Plan Diverticulitis: Admit to floor General Surgery consulted NPO diet, advance to clear liquid diet IVF ordered IV Zosyn ordered IV Zofran ordered IV morphine ordered Abdominal abscess: CT A/P revealed proximal sigmoid diverticulosis, and suggested abscess of 3.3 cm General Surgery consulted NPO diet HDL: Resumed home medication - Advance Directives Does patient have a Living Will: No Does patient have a Durable POA for Healthcare: No Time with patient 25 <Frida Berg - Last Filed: 07/02/24 18:06> Patient was seen and examined. Events of the last 24 hours have been noted. Spoke with with EDGAR regarding patient's clinical picture after evaluating and examining the patient independently. I performed a substantial part of the MDM during this patient's care today. I personally made or approved the documented management plan and acknowledge its risk of complications. I agree with the findings and documentation provided in the EDGAR's notes. <Colette Stearns - Last Filed: 07/19/24 16:02>
== END 2024-07-02 16:47 | disposition home or self-care (01) | DRG 391 ==
LOC: ER 15:46 → 2ND 19:31
PROVIDERS: ADMIT Hospitalist; ATTEND Hospitalist
DX: K57.30 Diverticulosis of large intestine without perforation or abscess without bleeding (principal); K65.1 Peritoneal abscess; E78.5 Hyperlipidemia, unspecified; Z90.710 Acquired absence of both cervix and uterus; E87.6 Hypokalemia
CPT/HCPCS: 36415; 74177; 80048; 80053; 80061; 81001; 82248; 83605; 83690; 83735; 84100; 84439; 84443; 85025; 96361; 96365; 96375; 99285; J1650; J2270; J2405; J2543; J3480; J7030; Q9967

== ENCOUNTER → 2024-10-23 | Day surgery (SDC) | payer OTHER ==
[2024-10-21 11:51] LABS: Absolute Eosinophils 0.2 K/uL (0-0.5); Absolute Lymphocytes (CBC) 3.3 K/uL (0.7-4.9); Absolute Monocytes 0.4 K/uL (0.1-1.3); Absolute Neutrophil 2.9 K/uL (1.8-8.0); Basophils % 0.7 % (0-1.3); Eosinophils % 2.4 % (0-4.4); Hematocrit 41.8 % (36.0-45.0); Lymphocytes % 48.7 % (15.3-44.8); MCH 30.8 pg (27.0-35.0); MCV 85.5 fL (80-100); MPV 6.7 fL (7.6-11.3); Monocytes % 5.7 % (3.3-12.3); Neutrophils % 42.5 % (41.7-73.7); Platelets 332 thou/uL (152-406); RBC Red Blood Cell Count 4.89 M/uL (3.86-4.86); Red Cell Distribution Width 13.7 % (12.1-15.2)
[2024-10-21 12:05] LABS: Anion Gap 5.5 mEq/L (5.0-15.0); Potassium 4.5 mEq/L (3.5-5.1)
--- NOTE | 2024-10-21 12:25 | EKG ---
Test Date: 2024-10-21 Test Time: 10:55:02 Teachers Assistant: RICARDO MEASUREMENT RESULTS: Intervals: Rate: 64 DE: 180 QRSD: 88 QT: 406 QTc: 418 [place]: P: 43 DE: 180 QRS: 57 T: 63 INTERPRETIVE STATEMENTS: Normal sinus rhythm Normal ECG No previous ECG available for comparison Electronically Signed On 10-21-24 12:24:32 CDT by Capo Bardales
[~2024-10-23] MED LIST: propofoL 200 MG/20 ML VIAL IV ONE
[2024-10-23] MEDS: Ringers Lactate 1,000 ML IV ONE (10:00)
[2024-10-23 13:52] VITALS: BP 160/64; TEMP 97.4; O2SAT 100
== END ==
LOC: OR 09:47
PROVIDERS: ATTEND Surgery
PROC: 0DBN8ZX Excision of Sigmoid Colon, Via Natural or Artificial Opening Endoscopic, Diagnostic (ICD-10-PCS; 2024-10-23)
PROC: 0DBF8ZX Excision of Right Large Intestine, Via Natural or Artificial Opening Endoscopic, Diagnostic (ICD-10-PCS; 2024-10-23)
PROC: 0DBH8ZX Excision of Cecum, Via Natural or Artificial Opening Endoscopic, Diagnostic (ICD-10-PCS; principal; 2024-10-23 12:00)
DX: Z12.11 Encounter for screening for malignant neoplasm of colon (principal); D12.0 Benign neoplasm of cecum; D12.4 Benign neoplasm of descending colon; D12.2 Benign neoplasm of ascending colon; D12.5 Benign neoplasm of sigmoid colon; K57.32 Diverticulitis of large intestine without perforation or abscess without bleeding; K64.8 Other hemorrhoids
CPT/HCPCS: 45380; 93005; 85025; 80048; 36415; 88305; J2704 ×4; J7120